=== PATIENT | female | born 2000 | race Two or more races ===

== ENCOUNTER → 2024-12-20 | Outpatient (CLI) | payer OTHER, SELFPAY ==
--- NOTE | 2024-12-20 | XR_ITS ---
Examination: Foot, left, 3 views Technique: AP, oblique, lateral views foot, 3 views Date and time of exam: December 20, 2024 1344 hours INDICATIONS: Patient fell today with injury to foot, foot pain. FINDINGS: No acute fracture No dislocation No foreign body IMPRESSION: No acute fracture
== END | disposition home or self-care (01) ==
LOC: CDIM 12:57
PROVIDERS: PCP Family Medicine; Referring Provider Family Medicine; Visit Provider Family Medicine
DX: S93.602A Unspecified sprain of left foot, initial encounter (principal); X58.XXXA Exposure to other specified factors, initial encounter
CPT/HCPCS: 73630

== ENCOUNTER 2025-03-08 10:40 | Emergency (ER) | payer OTHER, SELFPAY ==
[2025-03-08 10:41] VITALS: BMI 29.2
[2025-03-08 10:49] VITALS: BP 121/73; PULSE 64; RESP 18; TEMP 37.2; O2SAT 99
--- NOTE | 2025-03-08 10:55 | PD.EDRME ---
Rapid Medical Screening Exam E Arrival date/time: 03/08/25 10:40 24-year-old female with history of seizures presents to the emergency dept today for complaints of 5 seizures today. Last seizure 1 year ago Chief Complaint: Seizure Vital signs: Vital Signs Temperature 98.9 F 03/08/25 10:49 Pulse Rate 64 03/08/25 10:49 Respiratory Rate 18 03/08/25 10:49 Blood Pressure 121/73 03/08/25 10:49 Pulse Oximetry (%) 99 03/08/25 10:49 Oxygen Delivery Method Room Air 03/08/25 10:49
--- NOTE | 2025-03-08 11:28 | EDNOTE_ITS ---
<Statement entered by Mirta Mazariegos MD - 03/20/25 14:17> As co-signing physician, I was present and available for consult prn. I concur with the plan and care as documented by the midlevel provider. ED Seizures RME/HPI General Chief Complaint: Seizure Stated Complaint: SZ TODAY HX OF Time Seen by Provider: 03/08/25 11:12 Arrival date/time: 03/08/25 10:40 RME / HPI RME / HPI Narrative: 24-year-old female with history of seizures presents to the emergency dept today for complaints of 5 seizures today. Last seizure 1 year ago. Today patient had 3 seizure, [id number] according to her, she told me that she did not totally lose her consciousness she is slightly aware of the incident. She denies any head trauma or injury related to the incident. She is taking Keppra 750 mg twice daily and carbamazepine with good compliance. Currently patient is not having symptoms. Related Data Allergies Allergy/AdvReac Type Severity Reaction Status Date / Time No Known Allergies Allergy Verified 03/08/25 10:45 Review of Systems Review of Systems Narrative Review of Systems: Review of system reviewed and within normal limits except mentioned in HPI ED Exam Narrative Physical exam: VITAL SIGNS: Reviewed. GENERAL APPEARANCE: Alert and interactive, follows commands, no acute distress, HEAD AND FACE: Non-traumatic. ENT: PERRL, pink conjunctivitis, eyelid no trauma, Mucous membrane moist. NECK: Supple, nontender, no nuchal rigidity. CHEST: No tenderness, no crepitus, no paradoxical movement, no retractions. LUNGS: Clear, well ventilated, symmetric, no rales, no wheezing, no ronchi, no stridor, good breath sounds bilaterally. HEART: Regular rate, regular rhythm, no murmur, no gallops. ABDOMEN: Soft, positive bowel sounds, nondistended, no guarding, nontender, no rebound, no masses, RECTAL: Deferred. GENITAL: Deferred. NEUROLOGICAL: Gross motor function intact sensory function intact, Appropriate for age. MUSCULOSKELETAL: low back nontender, full range of motion. EXTREMITIES: Nontender, full range of motion. SKIN: Color pink, dry, no rash, no lacerations, no abrasions, no contusions. LYMPHATICS: Deferred. Course Quality Measures none Orders Category Date Time Status CBC Stat Lab 03/08/25 12:21 Completed CMP [Comprehensive Metabolic Panel] Stat Lab 03/08/25 11:26 Completed HCG Qualitative,Urine Stat Lab 03/08/25 12:13 Completed Mag [Magnesium] Stat Lab 03/08/25 11:26 Completed UA, C/S IF [Urinalysis, C/S if Indicated] Stat Lab 03/08/25 12:13 Completed Acetaminophen Tab [Tylenol ES Tab] Med 03/08/25 11:26 Discontinued 1,000 mg PO X1 ONE levETIRAcetam INJ [Keppra Inj] Med 03/08/25 11:26 Discontinued 1,000 mg IVP X1 ONE Vital Signs Vital signs: Vital Signs Temperature 98.9 F 03/08/25 10:49 Pulse Rate 64 03/08/25 10:49 Respiratory Rate 18 03/08/25 10:49 Blood Pressure 121/73 03/08/25 10:49 Pulse Oximetry (%) 99 03/08/25 10:49 Oxygen Delivery Method Room Air 03/08/25 10:49 Seizure MDM Narrative MDM Narrative:: 24-year-old female with history of seizures presents to the emergency dept today for complaints of 5 seizures today. Last seizure 1 year ago. Today patient had 3 seizure, [id number] according to her, she told me that she did not totally lose her consciousness she is slightly aware of the incident. She denies any head trauma or injury related to the incident. She is taking Keppra 750 mg twice daily and carbamazepine with good compliance. Currently patient is not having symptoms. Patient workup today all came back unremarkable. Patient was given a loading dose of Keppra 1 g IV no recurrence of seizure noted in the ED. Patient is ready to go home according to her. She is ambulatory she told me that she will call her neurologist tomorrow Patient data External records reviewed:: None Clinical information provided by:: patient Social determinants that could affect healthcare access:: none Patient has the following chronic illnesses:: None How is presenting disease/condition affected by chronic disease/condition?: exacerbated by Evaluation data The following diagnostics were reviewed and interpreted by me:: lab results Lab and/or radiology exams considered but not ordered:: None Interpretation Summary: See results MDM Medications / Prescriptions Medications or Prescriptions considered but not ordered:: None Medication administrations:: Medication Administration History Discontinued Medications Acetaminophen (Acetaminophen 500 Mg Tablet) 1,000 mg PO X1 ONE Stop: 03/08/25 11:27 Last Admin: 03/08/25 11:46 Dose: 1,000 mg Documented By: VG Levetiracetam (Levetiracetam Inj 100 Mg/Ml Vial 5ml) 1,000 mg IVP X1 ONE Stop: 03/08/25 11:27 Last Admin: 03/08/25 11:46 Dose: 1,000 mg Documented By: VG Tylenol Keppra Consultations Consultation(s) initiated? (list below): No Diagnosis Seizure Differential Diagnosis: focal seizure and generalized seizure Most likely diagnosis given after review of the tests above:: Breakthrough seizure Admission Indicated Admission indicated?: not indicated Admission Request Was there a request for admission?: No Disposition Plan Disposition Plan: Discharge Discharge Attestation Discharge Attestation: The patient was given an opportunity to ask questions and understood the discharge instructions. Discharge instructions specifically effects, indications for sooner follow up or return to the emergency department, and the expected course of current diagnosis. Patient condition: Stable Discharge Plan Plan Patient Disposition: HOME (Self Care) Discharge Disposition comment: stable Prescriptions/Referrals Referrals: Alexander Watters MD [Primary Care Provider] - In 1 week Problem List Clinical Impression: Breakthrough seizure Patient/Caregiver Discharge Instructions Discharge Activity: activity as tolerated Education Materials: Self-Care for Epilepsy, Living Well with Epilepsy Additional Instructions: Thank you for the opportunity for serving you today. You are stable for discharged . You are advised to: Follow-up with your PCP in 1 to 2 days Return to ED for worsening of symptoms Increase oral fluids Take medication as prescribed by your neurologist Print Language: Kazakh Stand Alone Forms: Thu Award Info., Patient Portal Info Letter SUSIE/BEBA Supervising Physician RENE Supervising Physician: MD Delilah
[2025-03-08] MEDS: ACETAMINOPHEN 500 MG TABLET 1000 MG PO (11:46)
[2025-03-08] MEDS: levETIRAcetam INJ 100 MG/ML VIAL 5ML 1000 MG IVP (11:46)
[2025-03-08 12:01] VITALS: BP 122/85; PULSE 57; RESP 22; O2SAT 100
[2025-03-08 12:05] LABS: Alanine Aminotransferase 14 U/L (10-49); Albumin, Serum 4.3 gm/dL (3.5-5.0); Albumin/Globulin Ratio 2.0 (1.2-2.2); Alkaline Phosphatase 91 U/L (46-116); Anion Gap 10 (7-16); Aspartate Amino Transferase 19 U/L (0-34); BUN/Creatinine Ratio 13 Ratio (12-20); Bilirubin,Total 0.3 mg/dL (0.3-1.2); Blood Urea Nitrogen 8 mg/dL (9-23); Calcium 9.1 mg/dL (8.3-10.6); Calcium (Corrected) 9.1 mg/dL (8.5-10.1); Carbon Dioxide 24.4 mMol/L (20.0-31.0); Chloride 109 mMol/L (98-107); Creatinine (Component) 0.6 mg/dL (0.6-1.3); Estimated Creatinine Clearance 134.9 mL/min (>60); Globulin 2.2 gm/dL (2.3-3.5); Glucose 94 mg/dL (74-106); Magnesium 1.9 mg/dL (1.6-2.6); Osmolality,Calculated 283 (275-295); Potassium 4.6 mMol/L (3.4-5.1); Sodium 143 mMol/L (136-145); Total Protein 6.5 gm/dL (5.7-8.2); eGFR > 60 See Note
[2025-03-08 12:20] LABS: Collection Type, Urine Clean Catch
[2025-03-08 12:24] LABS: HCG Qualitative,Urine Negative
[2025-03-08 12:27] LABS: Bilirubin,Urine Negative (Negative); Blood,Urine Negative (Negative); Clarity,Urine Clear (Clear/Hazy); Color,Urine Colorless (Lt Yel-Yel); Culture Indicated,Urine Not Indicated; Glucose, Urine Negative (Negative); Ketones,Urine Negative (Negative); Leukocyte Esterase,Urine Positive (Negative); Nitrite,Urine Negative (Negative); PH,Urine 6.5 (5.0-7.0); Protein,Urine Negative (Neg - Trace); RBC,Urine 1 /hpf (0-3); Specific Gravity,Urine 1.011 (1.001-1.035); Squamous Epithelial Cell,Urine < 1 /hpf (0-5); Urobilinogen,Urine Negative mg/dL (0.0-1.0); WBC,Urine 1 /hpf (0-5)
[2025-03-08 12:34] LABS: Basophils # (Auto) 0.0 Thou/mm3 (0.0-0.2); Basophils % (Auto) 0 % (0-2.5); Eosinophils # (Auto) 0.1 Thou/mm3 (0.0-0.5); Eosinophils % (Auto) 1 % (0-10); Hematocrit 39.2 % (36.0-46.0); Hemoglobin 12.8 g/dL (12.0-16.0); Immature Granulocytes Auto 0.03 Thou/mm3 (0.00-0.00); Lymphocytes # (Auto) 1.9 Thou/mm3 (1.0-4.8); Lymphocytes % (Auto) 19 % (10-50); Mean Corpuscular HGB Conc 32.7 g/dl (31.0-37.0); Mean Corpuscular Hemoglobin 28.4 pg (25.0-35.0); Mean Corpuscular Volume 87 fL (80-100); Monocytes # (Auto) 0.6 Thou/mm3 (0.0-0.8); Monocytes % (Auto) 6 % (0-12); Neutrophils # (Auto) 7.1 Thou/mm3 (1.8-7.7); Neutrophils % (Auto) 73 % (37-80); Nucleated Red Blood Cell # 0.00 Thou/mm3 (0.00-0.00); Nucleated Red Blood Cell % 0 /100 WBC (0); Platelet Count 239 Thou/mm3 (140-440); RDW Standard Deviation 47.0 fL (36.4-46.3); Red Blood Count 4.51 Miln/mm3 (4.00-5.20); White Blood Count 9.8 Thou/mm3 (3.6-11.0)
[2025-03-08 13:00] VITALS: BP 96/57; PULSE 59; RESP 16; O2SAT 88
[2025-03-08 13:57] VITALS: BP 96/57; PULSE 74; RESP 20; TEMP 36.8; O2SAT 100
[2025-03-08 14:00] VITALS: BP 103/63; PULSE 57; RESP 20; O2SAT 98
[2025-03-08 15:00] VITALS: BP 100/56; PULSE 55; RESP 21; O2SAT 96
== END 2025-03-08 15:34 | disposition home or self-care (01) ==
PROVIDERS: Nurse Practitioner Family; Nurse Practitioner Primary Care; Emergency Provider Emergency Medicine; PCP Family Medicine
DX: R56.9 Unspecified convulsions (principal)
CPT/HCPCS: 36415; 80053; 81001; 81025; 83735; 85025; 96374; 99283; J1953; A9270